=== PATIENT | female | born 1995 | race Caucasian/White ===

== ENCOUNTER 2019-08-07 13:02 | Emergency (ER) | payer OTHER ==
[~2019-08-07] VITALS: Ht 167.6 cm; Wt 79.1 kg
[2019-08-07 13:07] VITALS: BP 127/78
[2019-08-07] MEDS ORDERED: DIPH,PERTUSS(ACELL),TET VAC/PF 0.5 ML IM-VACC ONE ×2 (13:18→13:30)
[2019-08-07] MEDS ORDERED: NEOSPORIN OINT. PKT 1 PACKET ONE (13:22)
[2019-08-07] MEDS ORDERED: RABIES IMMUNE GLOBULIN/PF 150 UNITS/ML, 2ML IM ONE (14:00)
--- NOTE | 2019-08-07 14:02 | NUR ---
PER PREVIOUS RN, PHARMACY HAS SENT OUT TO [facility] FOR RABIES VACCINE AND IMMUNOGLOBULIN.
[2019-08-07] MEDS ORDERED: RABIES VACCINE /PF 2.5 UNITS IM-VACC ONE (15:02)
== END 2019-08-07 16:07 | disposition home or self-care (01) ==
LOC: ED 14:43
DX: S60.571A Other superficial bite of hand of right hand, initial encounter (principal); W55.01XA Bitten by cat, initial encounter; Y93.89 Activity, other specified; Y92.098 Other place in other non-institutional residence as the place of occurrence of the external cause; Y99.8 Other external cause status
CPT/HCPCS: 90375; 90471; 90472; 90675; 90715; 96372; 99283